=== PATIENT | female | born 1940 | race African-American/Black ===

== ENCOUNTER → 2017-05-16 | Outpatient (CLI) | payer MEDICARE ==
[~2017-05-16] VITALS: Ht 165.1 cm; Wt 106.2 kg
[~2017-05-16] MED LIST: CHLORHEXIDINE GLUCONATE 2 % 1 PACK (2 CLOTHS) TOPICAL PRN; DO NOT ADM ANY ANTICOAGULANT DRUGS PRN; INSULIN HUMAN REGULAR 1,000 UNITS/10 ML VIAL SQ PRN; LACTATED RINGER'S 1000 ML IV PRN; LEVO75TA3 PO; LIDOCAINE HCL 1% PF 5 ML SYRINGE OTHER ONE; LISI10TA3 PO; METO50TA PO; METOPROLOL TARTRATE 25 MG TAB PO PRN; OMEP20TA93 PO; PHENYLEPH/NS 1000 MCG/10 ML SYR IV ONE; POVIDONE IODINE 5% (ANTISEPSIS KIT) 4 APPLICATIONS EACH NARE PRN; PROPOFOL 200 MG/20 ML AMP IV ONE; SODIUM CHLORID 0.9% 500 ML IV PRN; SUCCINYLCHOLINE CHLORIDE 200 MG/10 ML VIAL IV ONE; TRAM50TA PO
--- NOTE | 2017-05-16 11:40 | PD.PROCEDR ---
GI Procedure REFERRING PHYSICIAN Dr. douglas PROCEDURE PERFORMED Endoscopic ultrasound INDICATION FOR PROCEDURE Abnormal imaging suggesting a pancreatic mass PROCEDURE: The procedure, risks and benefits were discussed with Ms. Kasper and informed consent was obtained. Anesthesia sedated her with Diprivan. She was placed in the left lateral decubitus position. Endoscopic ultrasound: The Pentax videoscope was introduced through the oropharynx and advanced to the second portion of the duodenum. FINDINGS: The pancreas was scanned from head to tail the pancreas was isoechoic and homogeneous throughout the pancreatic duct appeared to be mildly dilated in the pancreatic head to about 4 mm but throughout the pancreatic body to the tail it was within normal limits at 2-2.5 mm there was a dilation in one segment of the pancreatic duct in the mid pancreatic body possibly a communicating cyst clearly communicating with both the proximal and the distal portions of the pancreatic duct this cyst was measuring barely 4X4 mm and appeared to be quite homogeneous no lymphadenopathy noted, bile duct appeared to be unremarkable the ampulla was normal ESTIMATED BLOOD LOSS: None SPECIMENS REMOVED: None COMPLICATIONS: None IMPRESSION: Small pancreatic cyst Mild dilation of the pancreatic duct in the head of the pancreas otherwise unremarkable EUS PLAN: Follow-up in clinic for further evaluation and discussion Consider repeat imaging such as a CT of the abdomen with pancreatic protocol in 3-6 months versus repeat EUS Khanh Wayne MD May 16, 2017 11:40
[2017-05-16 12:58] VITALS: BP 142/66; PULSE 63; RESP 18; TEMP 97.1; O2SAT 98
--- NOTE | 2017-05-16 14:28 | EKG ---
Date Performed: 05/16/2017 Time Performed: 09:34:20 PTAGE: 76 years EKG: SINUS BRADYCARDIA VOLTAGE CRITERIA FOR LVH ABNORMAL ECG NO PREVIOUS TRACING DOCTOR: Shena Hui Interpretating Date/Time 05/16/2017 14:27:42
== END ==
LOC: HSDC 08:26
PROVIDERS: ATTEND Internal Medicine Gastroenterology
DX: K86.2 Cyst of pancreas (principal); I10 Essential (primary) hypertension; N18.3 Chronic kidney disease, stage 3 (moderate); E03.9 Hypothyroidism, unspecified; K21.9 Gastro-esophageal reflux disease without esophagitis; R94.31 Abnormal electrocardiogram [ECG] [EKG]
CPT/HCPCS: 00731; 43259; 93005; J3010; J7120; J0330; J2370